=== PATIENT | female | born 2005 | race Caucasian/White ===

== ENCOUNTER 2023-09-14 12:27 | Inpatient (IN) | payer BC ==
[2023-09-14] MEDS ORDERED: Morphine 4 MG/ML VIAL ONE ×2 (12:51→18:21)
[2023-09-14] MEDS ORDERED: Ondansetron PF 4 MG/2 ML Vial ONE (12:51)
[2023-09-14 13:08] LABS: #Basophils 0.1 thou/uL (0.0-0.2); #Neutrophils 14.6 thou/uL (1.40-6.50); %Basophils 0.4 % (0.0-1.0); %Eosinophils 0.2 % (0.0-10.0); %Lymphocytes 12.1 % (28.0-48.0); %Monocytes 5.3 % (0.0-4.0); %Neutrophils 81.3 % (31.0-61.0); Hemoglobin 16.6 g/dL (12.0-16.0); Mean Corpuscular HGB CONC 34.6 g/dL (32.0-36.0); Mean Corpuscular Hemoglobin 27.9 pg (25.0-35.0); Mean Corpuscular Volume 80.8 fl (78.0-98.0); Mean Platelet Volume 8.7 fL (7.4-10.4); Platelet Count 427 10x3/uL (130-400); RBC Distribution Width 12.9 % (11.5-14.5); Red Blood Cell (RBC) Count 5.94 mill/uL (4.00-5.20)
[2023-09-14 13:20] LABS: BHCG - Serum Negative (NEGATIVE); Pregs Control Background? CLEAR/WHITE (CLR/WHITE); Pregs Control Bar Appear? YES (CONTROL BAR)
[2023-09-14 13:33] LABS: ALT (SGPT) 16 U/L (8-55); AST (SGOT) 14 U/L (5-30); Albumin 4.3 g/dL (3.5-5.0); Alkaline Phosphatase 84 U/L (40-100); Anion Gap 15 mmol/L (10-20); BUN (Urea Nitrogen) 8 mg/dL (8.4-21.0); Calc. Creatinine Clearance 0 mL/min (70-130); Calcium 9.8 mg/dL (7.8-10.44); Carbon Dioxide 26 mmol/L (22-29); Chloride 100 mmol/L (98-107); Estimated GFR 86; Globulin 4.7 g/dL (2.4-3.5); Glucose 122 mg/dL (70-105); Lipase 18 U/L (8-78); Potassium 3.8 mmol/L (3.5-5.1); Sodium 137 mmol/L (136-145)
[2023-09-14 14:17] LABS: Bacteria/HPF 1+ HPF (None Seen); Bilirubin Negative (Negative); Blood, Urine Negative (Negative); CAUTI Indications for Culture Pelvic or flank pain; Clarity Clear (Clear); Glucose, Urine (Dipstick) Normal (Negative); Ketone, Urine Trace mg/dL (Negative); Leukocyte 250 Leu/uL (Negative); Nitrite Negative (Negative); Protein, Urine (Dipstick) 30 mg/dL (Neg-Trace); RBC/HPF 0-3 HPF (0-3); Specific Gravity, Urine 1.029 (1.002-1.036); Urobilinogen Normal mg/dL (Less than 2); pH, Urine 6.5 (5.0-9.0)
[2023-09-14 14:18] LABS: Urine Culture Reflex No No
[2023-09-14] MEDS ORDERED: Piperacillin/Tazobactam 4.5 GM VIAL ONE (15:17)
[2023-09-14] MEDS ORDERED: Sodium Chloride 0.9% 100 ML ONE (15:17)
[2023-09-14] MEDS ORDERED: Morphine 2 MG/ML VIAL SLOW IVP PRN (16:32)
[2023-09-14] MEDS ORDERED: Electrolyte Replacement Protocol FS SCH (16:45)
[2023-09-14] MEDS ORDERED: Electrolyte Replacement Protocol FS PRN (18:45)
[2023-09-14] MEDS ORDERED: HYDROmorphone 0.5 MG/0.5 ML SYRINGE ONE (19:04)
[2023-09-14 19:45] VITALS: BMI 19.3
[2023-09-14] MEDS: Piperacillin/Tazobactam 3.375 GM in Sodium Chloride 0.9% 100 ML IVPB SCH (20:48)
[2023-09-14] MEDS: Sodium Chloride 0.9% 1,000 ML IV SCH (20:48)
[2023-09-14] MEDS ORDERED: Morphine 2 MG/ML VIAL SLOW IVP SCH (21:00)
[2023-09-15] MEDS: Ondansetron PF 4 MG/2 ML Vial IVP PRN ×2 (00:43→05:53)
[2023-09-15] MEDS: Morphine 4 MG/ML VIAL SLOW IVP PRN ×3 (00:51→10:31)
[2023-09-15] MEDS: Acetaminophen 500 MG TAB PO SCH ×2 (00:54→01:41)
[2023-09-15 00:56] LABS: Campy jejuni + coli by PCR Negative (Negative); STEC Shiga Toxin 1+2 Negative (Negative); Salmonella spp. by PCR Negative (Negative); Shigella spp + EIEC by PCR Negative (Negative)
[2023-09-15] MEDS: Piperacillin/Tazobactam 3.375 GM in Sodium Chloride 0.9% 100 ML IVPB SCH ×3 (04:11→20:23)
[2023-09-15] MEDS: Sodium Chloride 0.9% 1,000 ML IV SCH ×2 (05:49→16:25)
[2023-09-15] MEDS: Mesalamine DR 400 mg Capsule PO SCH ×3 (09:07→20:23)
[2023-09-15] MEDS: methylPREDNISolone Sod Succ 40 MG VIAL IVP SCH ×2 (09:07→20:23)
[2023-09-15] MEDS: Acetaminophen 325 MG TAB PO PRN (09:20)
[2023-09-15] MEDS: HYDROcodone/Acetaminophen 5/325 mg Tablet PO PRN ×2 (12:40→20:23)
[2023-09-15 13:19] LABS: #Basophils 0.1 thou/uL (0.0-0.2); #Eosinphils 0.1 thou/uL (0.0-0.7); #Monocytes 1.7 thou/uL (0.11-0.59); #Neutrophils 16.7 thou/uL (1.40-6.50); %Basophils 0.5 % (0.0-1.0); %Eosinophils 0.3 % (0.0-10.0); %Lymphocytes 6.4 % (28.0-48.0); %Monocytes 8.4 % (0.0-4.0); %Neutrophils 83.8 % (31.0-61.0); Hematocrit 45.1 % (36.0-47.0); Hemoglobin 15.1 g/dL (12.0-16.0); Mean Corpuscular HGB CONC 33.5 g/dL (32.0-36.0); Mean Corpuscular Hemoglobin 28.3 pg (25.0-35.0); Mean Platelet Volume 9.3 fL (7.4-10.4); RBC Distribution Width 12.9 % (11.5-14.5); Red Blood Cell (RBC) Count 5.34 mill/uL (4.00-5.20)
[2023-09-15 13:25] LABS: Mean Corpuscular Volume 84.5 fl (78.0-98.0); Platelet Count 325 10x3/uL (130-400)
[2023-09-15 13:28] LABS: Anion Gap 17 mmol/L (10-20); BUN (Urea Nitrogen) 7 mg/dL (8.4-21.0); Calc. Creatinine Clearance 104 mL/min (70-130); Calcium 8.8 mg/dL (7.8-10.44); Carbon Dioxide 21 mmol/L (22-29); Chloride 103 mmol/L (98-107); Estimated GFR 114; Glucose 76 mg/dL (70-105); Potassium 3.6 mmol/L (3.5-5.1); Sodium 137 mmol/L (136-145)
[2023-09-16] MEDS: Sodium Chloride 0.9% 1,000 ML IV SCH ×3 (01:21→21:37)
[2023-09-16] MEDS: HYDROcodone/Acetaminophen 5/325 mg Tablet PO PRN ×2 (04:14→09:29)
[2023-09-16] MEDS: Ondansetron ODT 4 MG TAB PO PRN ×2 (04:14→10:30)
[2023-09-16] MEDS: Mesalamine DR 400 mg Capsule PO SCH ×3 (09:29→20:52)
[2023-09-16] MEDS: methylPREDNISolone Sod Succ 40 MG VIAL IVP SCH ×2 (09:29→20:47)
[2023-09-16 09:34] LABS: #Monocytes 1.8 thou/uL (0.11-0.59); #Neutrophils 15.7 thou/uL (1.40-6.50); %Basophils 0.2 % (0.0-1.0); %Eosinophils 0.1 % (0.0-10.0); %Lymphocytes 8.8 % (28.0-48.0); %Monocytes 9.1 % (0.0-4.0); %Neutrophils 80.8 % (31.0-61.0); Hematocrit 36.5 % (36.0-47.0); Hemoglobin 12.4 g/dL (12.0-16.0); Mean Corpuscular Hemoglobin 28.2 pg (25.0-35.0); Mean Platelet Volume 8.9 fL (7.4-10.4); Platelet Count 339 10x3/uL (130-400); RBC Distribution Width 12.8 % (11.5-14.5); White Blood Cell (WBC) Count 19.4 10x3/uL (4.8-10.8)
[2023-09-16 14:32] LABS: HBSAB Concentration Less than 8.00 mIU/mL; HBSAg Index 0.22 S/CO (0-0.99); Hep B Surf AB Non-Reactive (NonReactive); Hep B Surf Ag Non-Reactive S/CO (NonReactive); Hep C IgG Ab Non-Reactive S/CO (NonReactive); Hep C Index 0.14 S/CO (0-0.79)
[2023-09-16 15:12] LABS: Anion Gap 11 mmol/L (10-20); BUN (Urea Nitrogen) 6 mg/dL (8.4-21.0); Calc. Creatinine Clearance 131 mL/min (70-130); Calcium 8.4 mg/dL (7.8-10.44); Carbon Dioxide 24 mmol/L (22-29); Chloride 105 mmol/L (98-107); Estimated GFR 132; Glucose 88 mg/dL (70-105); Potassium 3.5 mmol/L (3.5-5.1); Sodium 136 mmol/L (136-145)
[2023-09-16] MEDS: Acetaminophen 325 MG TAB PO PRN (21:37)
[2023-09-17] MEDS ORDERED: Potassium Chloride 20 MEQ TAB PO SCH (08:00)
[2023-09-17 08:11] VITALS: BP 123/74; TEMP 97.6
[2023-09-17] MEDS ORDERED: predniSONE 20 MG TAB PO SCH (08:15)
[2023-09-17] MEDS: Mesalamine DR 400 mg Capsule PO SCH ×2 (09:14→15:14)
[2023-09-17] MEDS: Acetaminophen 325 MG TAB PO PRN (09:15)
[2023-09-17] MEDS: Sodium Chloride 0.9% 1,000 ML IV SCH (09:17)
[2023-09-17] MEDS ORDERED: FLU VACC QS2023-24(6MOS UP)/PF 60 MCG/0.5 ML SYRINGE IM ONE (23:45)
[2023-09-18] MEDS ORDERED: predniSONE 20 MG TAB PO SCH (08:00)
== END 2023-09-17 15:45 | disposition home or self-care (01) | DRG 386 ==
LOC: ERS 12:27 → T4-A 16:27 → OBSVTOIN 09-16 16:16
PROVIDERS: ADMIT Hospitalist; ATTEND Family Medicine
DX: K50.90 Crohn's disease, unspecified, without complications (principal); R65.10 Systemic inflammatory response syndrome (SIRS) of non-infectious origin without acute organ dysfunction; K52.9 Noninfective gastroenteritis and colitis, unspecified; Z79.899 Other long term (current) drug therapy; Z90.49 Acquired absence of other specified parts of digestive tract; Z98.890 Other specified postprocedural states
CPT/HCPCS: 36415; 74177; 80048; 80053; 81001; 83605; 83690; 84703; 85025; 86480; 86706; 86803; 87040; 87086; 87324; 87340; 87449; 87505; 96365; 96375; 96376; G0378; J1170; J2270; J2272; J2405; J2543; J2920; J3490; J7050; J7512; Q0162

== ENCOUNTER 2023-10-09 09:38 | Outpatient (CLI) | payer BC | END 2023-10-09 09:39 | disposition home or self-care (01) | LOC: BICRAD 09:38 | PROVIDERS: ATTEND Internal Medicine | DX: K50.90 Crohn's disease, unspecified, without complications (principal) | CPT/HCPCS: 71046 ==

== ENCOUNTER 2023-10-15 17:28 | Emergency (ER) | payer BC ==
[2023-10-15 18:06] LABS: #Basophils 0.1 thou/uL (0.0-0.2); #Eosinphils 0.4 thou/uL (0.0-0.7); #Monocytes 1.2 thou/uL (0.11-0.59); #Neutrophils 12.4 thou/uL (1.40-6.50); %Basophils 0.3 % (0.0-1.0); %Eosinophils 2.1 % (0.0-10.0); %Lymphocytes 14.2 % (28.0-48.0); %Monocytes 7.4 % (0.0-4.0); %Neutrophils 75.4 % (31.0-61.0); Hematocrit 39.8 % (36.0-47.0); Hemoglobin 12.9 g/dL (12.0-16.0); Mean Corpuscular HGB CONC 32.4 g/dL (32.0-36.0); Mean Corpuscular Hemoglobin 26.9 pg (25.0-35.0); Mean Corpuscular Volume 83.1 fl (78.0-98.0); Platelet Count 428 10x3/uL (130-400); RBC Distribution Width 13.6 % (11.5-14.5); Red Blood Cell (RBC) Count 4.79 mill/uL (4.00-5.20); White Blood Cell (WBC) Count 16.4 10x3/uL (4.8-10.8)
[2023-10-15 18:35] LABS: ALT (SGPT) 17 U/L (8-55); AST (SGOT) 14 U/L (5-30); Albumin 3.7 g/dL (3.5-5.0); Alkaline Phosphatase 69 U/L (40-100); Anion Gap 15 mmol/L (10-20); BUN (Urea Nitrogen) 7 mg/dL (8.4-21.0); Bilirubin, Total 0.6 mg/dL (0.2-1.2); Calc. Creatinine Clearance 0 mL/min (70-130); Calcium 9.1 mg/dL (7.8-10.44); Carbon Dioxide 22 mmol/L (22-29); Chloride 105 mmol/L (98-107); Estimated GFR 100; Glucose 89 mg/dL (70-105); Potassium 3.7 mmol/L (3.5-5.1); Protein, Total 7.7 g/dL (6.0-8.3); Sodium 138 mmol/L (136-145)
[2023-10-15 18:43] LABS: Troponin I Less than 0.010 ng/mL (< 0.028)
[2023-10-15] MEDS ORDERED: Ondansetron PF 4 MG/2 ML Vial ONE (19:09)
[2023-10-15] MEDS ORDERED: Ibuprofen 200 MG TAB ONE (19:09)
[2023-10-15] MEDS ORDERED: Morphine 4 MG/ML VIAL ONE (19:09)
== END 2023-10-15 21:47 | disposition home or self-care (01) ==
LOC: ERS 17:28
DX: I30.9 Acute pericarditis, unspecified (principal)
CPT/HCPCS: 36415; 71045; 80053; 84484; 85025; 86140; 93005; 96361; 96374; J2270; J2405